=== PATIENT | female | born 1990 | race African-American/Black ===

== ENCOUNTER 2019-01-05 10:22 | Inpatient (IN) | payer BC ==
[~2019-01-05] VITALS: Ht 170.2 cm; Wt 76.2 kg
[2019-01-05 11:22] LABS: EOSINOPHILS % 0.5 % (0.0-5.0); HEMATOCRIT. 38.6 % (36.0-48.0); HEMOGLOBIN. 12.6 g/dL (12.0-16.0); LYMPHOCYTES % 7.6 % (20.0-50.0); MEAN CORPUSCULAR HEMOGLOBIN 29.9 pg (28.0-32.0); MEAN CORPUSCULAR VOLUME 91.2 fL (81.0-99.0); MEAN PLATELET VOLUME 7.2 fl (7.4-10.4); MONOCYTES % 2.9 % (2.0-8.0); PLATELET 154 x1000/uL (130-400); RED BLOOD CELL COUNT 4.23 mill/uL (4.2-5.4); RED CELL DISTRIBUTION WIDTH 16.6 % (11.6-14.6)
[2019-01-05 11:27] LABS: CHLORIDE 103 mEq/L (98-107)
[2019-01-05 11:30] LABS: PARTIAL THROMBOPLASTIN TIME 29.7 sec (23.4-31.0); PROTHROMBIN TIME 10.5 sec (9.6-11.0)
[2019-01-05 11:36] LABS: HCG SCREEN NEGATIVE
[2019-01-05] MEDS ORDERED: ONDANSETRON HCL 4MG/2ML INJ IV ONE ×2 (11:45→15:15)
[2019-01-05] MEDS ORDERED: MORPHINE SULFATE 4 MG/ML CPJ (NOT FOR IM USE) IV ONE (11:45)
[2019-01-05 15:40] VITALS: BP 133/97
[2019-01-05] MEDS ORDERED: GUAIFENESIN 200MG/10ML SUGAR FREE UDC PO PRN (15:45)
[2019-01-05] MEDS ORDERED: DIPHENHYDRAMINE 50MG/ML VIAL IV PRN (15:45)
[2019-01-05] MEDS ORDERED: CLONIDINE 0.1MG TABLET PO PRN (15:45)
[2019-01-05] MEDS ORDERED: ACETAMINOPHEN 325MG TABLET PO PRN (15:45)
[2019-01-05] MEDS ORDERED: IPRATROPIUM/ALBUTEROL 0.5-3(2.5)MG/3ML NEB INH PRN (15:45)
[2019-01-05 16:30] VITALS: BP 119/86
[2019-01-05] MEDS ORDERED: AMLO10TA80 PO (17:10)
[2019-01-05] MEDS ORDERED: LABE200T28 PO (17:10)
[2019-01-05] MEDS ORDERED: PRED-276 PO (17:10)
[2019-01-05] MEDS ORDERED: ONDANSETRON HCL 4MG/2ML INJ IV PRN (19:00)
[2019-01-05 20:00] VITALS: BP 139/67
[2019-01-05] MEDS: LABETALOL HCL 200MG TABLET PO SCH (21:27)
[2019-01-05] MEDS: SODIUM CHLORIDE 0.9% INJ 3ML FLUSH IVF SCH (22:57)
[2019-01-06] VITALS: BP 122/83
[2019-01-06 04:00] VITALS: BP 118/79
[2019-01-06] MEDS: SODIUM CHLORIDE 0.9% INJ 3ML FLUSH IVF SCH ×3 (05:54→22:00)
[2019-01-06 08:00] VITALS: BP 130/96
[2019-01-06] MEDS: LABETALOL HCL 200MG TABLET PO SCH ×2 (09:00→21:41)
[2019-01-06] MEDS: AMLODIPINE 10MG TABLET PO SCH ×2 (09:00→21:41)
[2019-01-06] MEDS ORDERED: PREDNISONE 5MG TABLET PO SCH (09:00)
[2019-01-06] MEDS: PREDNISONE 5MG TABLET PO SCH (09:15)
[2019-01-06 12:00] VITALS: BP 134/100
[2019-01-06 16:00] VITALS: BP 139/86
[2019-01-06 20:00] VITALS: BP 127/76
[2019-01-07] VITALS: BP 139/93
[2019-01-07 04:00] VITALS: BP 132/67
[2019-01-07] MEDS: SODIUM CHLORIDE 0.9% INJ 3ML FLUSH IVF SCH ×2 (05:27→14:32)
[2019-01-07 08:00] VITALS: BP 128/92
[2019-01-07] MEDS: LABETALOL HCL 200MG TABLET PO SCH (09:18)
[2019-01-07] MEDS: PREDNISONE 5MG TABLET PO SCH (09:18)
[2019-01-07] MEDS: AMLODIPINE 10MG TABLET PO SCH (09:19)
[2019-01-07 12:00] VITALS: BP 129/94
[2019-01-07 16:00] VITALS: BP 109/73
[2019-01-07 17:59] VITALS: BP 109/73
[2019-01-08 10:06] LABS: COMPLEMENT C3 58 mg/dL (82-167)
== END 2019-01-07 18:40 | disposition home or self-care (01) | DRG 291 ==
LOC: ER 10:22 → 7WST 12:40 → EDBEDREQ 12:44 → ENRESERV 14:56
PROVIDERS: ADMIT Internal Medicine; ATTEND Internal Medicine
PROC: 5A1D70Z Performance of Urinary Filtration, Intermittent, Less than 6 Hours Per Day (ICD-10-PCS; principal; 2019-01-05)
DX: I13.2 Hypertensive heart and chronic kidney disease with heart failure and with stage 5 chronic kidney disease, or end stage renal disease (principal); N18.6 End stage renal disease; E44.0 Moderate protein-calorie malnutrition; E87.5 Hyperkalemia; I50.9 Heart failure, unspecified; I73.9 Peripheral vascular disease, unspecified; M32.9 Systemic lupus erythematosus, unspecified; I27.20 Pulmonary hypertension, unspecified; M32.14 Glomerular disease in systemic lupus erythematosus; R07.89 Other chest pain; Z88.9 Allergy status to unspecified drugs, medicaments and biological substances; Z99.2 Dependence on renal dialysis; Z68.26 Body mass index [BMI] 26.0-26.9, adult
CPT/HCPCS: 36415; 71045; 83520; 83880; 84484; 84703; 85651; 86140; 86160; 86225; 86256; 93005; 93306; 93970; 96374; 96375; 96376; 99285; J2270; J2405; J7512